=== PATIENT | female | born 1995 | race Caucasian/White ===

== ENCOUNTER 2017-06-23 09:33 | Emergency (ER) | payer BC ==
[2017-06-23 11:49] VITALS: BP 116/75
--- NOTE | 2017-06-23 12:01 | UC ---
Throat Pain/Nasal Chip HPI - HPI Summary HPI Summary: 21 y/o female presents to the urgent care c/o sore throat, body aches and B/L ear pain for the past 2 days> Pt report Pain w/ swallowing is 8/10. Pt has taking Motrin to alleviate symptoms. Pt denies SOB, cough, chest pain, dizziness , abdominal pain, N/V/D. Pt is UTD w/ all vaccines for her age. - History of Current Complaint Chief Complaint: UCRespiratory Stated Complaint: ST, ACHES Time Seen by Provider: 06/23/17 11:52 Hx Obtained From: Patient Hx Last Menstrual Period: 06/17/17 Onset/Duration: Gradual Onset, Lasting Days - 3 days, Still Present, Worse Since - 2 days Severity: Moderate Pain Intensity: 8 Pain Scale Used: 0-10 Numeric Cough: None Associated Signs & Symptoms: Positive: Negative, Fever - chills and subjective at home - Epiglottits Risk Factors Epiglottis Risk Factors: Negative - Allergies/Home Medications Allergies/Adverse Reactions: Allergies Allergy/AdvReac Type Severity Reaction Status Date / Time levofloxacin [From Levaquin] Allergy Unknown Verified 06/23/17 11:47 Reaction Details Home Medications: Home Medications Ethinyl Estradiol/Drospirenone [Ocella 3 mg-0.03 mg Tablet] 1 tab PO DAILY 06/23 [History Confirmed 06/23/17] PMH/Surg Hx/FS Hx/Imm Hx Previously Healthy: Yes - Pt denies PMHX - Surgical History Surgical History: None - Family History Known Family History: Positive: None - Pt denies FMHX - Social History Occupation: Student Lives: With Family Alcohol Use: Occasionally Substance Use Type: None Smoking Status (MU): Never Smoked Tobacco Review of Systems Constitutional: Fever - subjective at home, Chills Skin: Negative Eyes: Negative ENT: Sore Throat, Ear Ache - B/L ear pain Respiratory: Cough Cardiovascular: Negative Gastrointestinal: Negative Genitourinary: Negative Motor: Negative Neurovascular: Negative Musculoskeletal: Negative Neurological: Negative Psychological: Negative Is Patient Immunocompromised?: No All Other Systems Reviewed And Are Negative: Yes Physical Exam Triage Information Reviewed: Yes Vital Signs: Initial Vital Signs Temp 99.5 F 06/23/17 11:45 Pulse 101 06/23/17 11:45 Resp 15 06/23/17 11:45 BP 116/75 02/08/18 11:45 Pulse Ox 99 06/23/17 11:45 - Additional Comments VITAL SIGNS: Reviewed. GENERAL: Patient is a well developed and nourished female who is sitting comfortable in the examining table. Patient is not in any acute respiratory distress. HEAD AND FACE: No signs of trauma. No ecchymosis, hematomas or skull depressions. No sinus tenderness. EYES: PERRLA, EOMI x 2, No injected conjunctiva, no nystagmus. No photophobia. EARS: Hearing grossly intact. Ear canals and tympanic membranes are within normal limits. MOUTH: Positive pharynx with erythema, moderate exudates, palatal petechiae. B/ L tonsillar enlargement with moderate exudate. Uvula in midline. NECK: Supple, trachea is midline, Positive anterior cervical lymphadenopathy, no JVD, no carotid bruit, no c-spine tenderness, neck with full ROM. No meningeal signs, no Kernig's or brudzinskis signs. CHEST: Symmetric, no tenderness at palpation LUNGS: Clear to auscultation bilaterally. No wheezing or crackles. CVS: Regular rate and rhythm, S1 and S2 present, no murmurs or gallops appreciated. ABDOMEN: Soft, non-tender. No signs of distention. No rebound no guarding, and no masses palpated. Bowel sounds are normal. EXTREMITIES: FROM in all major joints, no edema, no cyanosis or clubbing. NEURO: Alert and oriented x 3. No acute neurological deficits. Speech is normal and follows commands. SKIN: Dry and warm Throat Pain/Nasal Course/Dx - Course Course Of Treatment: 21 y/o female presents to the urgent care c/o sore throat, body aches and B/L ear pain for the past 2 days> Pt report Pain w/ swallowing is 8/10. Pt has taking Motrin to alleviate symptoms. Pt denies SOB, cough, chest pain, dizziness, abdominal pain, N/V/D. Pt is UTD w/ all vaccines for her age. Hx obtained. Rapid strep ordered: result: invalid. Throat culture obatined and sent to lab to r/o strep. Pt will be treated prophylactically for Strep pharyngitis. Rx Amoxicillin PO and Ibuprofen PO and Prednisone PO to alleviate symptoms. PT Advised on hand washing to avoid spreading. Also advised to rest, eat well and avoid strenuous exercise. If symptoms do not improve or worsen advised to return to the urgent care or f/u with her PCP for further evaluation and treatment. PT understood and agreed - Differential Dx/Diagnosis Differential Diagnosis/HQI/PQRI: Influenza, Mononucleosis, Otitis Media, Peritonsillar Abscess, Pharyngitis, Tonsillitis Provider Diagnoses: 1- Pharyngitis. 2-Tonsillitis Discharge - Discharge Plan Condition: Stable Disposition: HOME Prescriptions: Amoxicillin PO (*) [Amoxicillin 875 MG (*)] 875 mg PO BID #20 tab Ibuprofen TAB* [Motrin TAB* 800 MG] 800 mg PO Q6H PRN #20 tab PRN Reason: Sore Throat predniSONE TAB* [Deltasone TAB*] 20 mg PO DAILY #11 tab Patient Education Materials: Pharyngitis (ED), Tonsillitis (ED) Forms: *School Release Referrals: [facility] [Outside] - 3 Days Additional Instructions: 1- Please take the full course of the antibiotic to avoid resistance. 2-Please take Prednisone PO and ibuprofen PO q6-8hrs prn as instructed after meals to alleviate pain and swelling. Increase fluid intake, eat well, rest and avoid strenuous exercise 3- Throat culture was sent to lab to r/o strep. You will be notified of result 4-If symptoms do not improve or worsen please return to the urgent care or f/u with your PCP for further evaluation and treatment.
== END 2017-06-23 12:43 | disposition home or self-care (01) ==
LOC: UCCORT 09:33
DX: J02.9 Acute pharyngitis, unspecified (principal); J03.90 Acute tonsillitis, unspecified
CPT/HCPCS: 87070; 99202; G0463

== ENCOUNTER 2018-06-22 11:29 | Emergency (ER) | payer BC ==
[2018-06-22 13:46] VITALS: BP 122/80
--- NOTE | 2018-06-22 14:03 | UC ---
General HPI - HPI Summary HPI Summary: Two days ago started with sore throat and gever. No cough or congestion. Having trouble sleeping because she wakes up with chills and sweats. No N/V/D. No abdominal pain. No rash. Meds: reviewed - History of Current Complaint Chief Complaint: UCGeneralIllness Stated Complaint: THROAT COMPLAINT Time Seen by Provider: 06/22/18 13:42 Hx Last Menstrual Period: 06/20/18 Pain Intensity: 8 - Allergy/Home Medications Allergies/Adverse Reactions: Allergies Allergy/AdvReac Type Severity Reaction Status Date / Time levofloxacin [From Levaquin] Allergy Unknown Verified 06/23/17 11:47 Reaction Details Home Medications: Home Medications Ibuprofen TAB* [Motrin TAB* 800 MG] 400 mg PO Q6H PRN 06/22/18 [History Confirmed 06/22/18] PMH/Surg Hx/FS Hx/Imm Hx Previously Healthy: Yes - Surgical History Surgical History: None - Family History Known Family History: Positive: None - Pt denies FMHX - Social History Alcohol Use: Weekly Substance Use Type: None Smoking Status (MU): Never Smoked Tobacco Review of Systems All Other Systems Reviewed And Are Negative: Yes Constitutional: Positive: Fever, Chills ENT: Positive: Sore Throat Physical Exam Triage Information Reviewed: Yes Appearance: Well-Appearing Vital Signs: Initial Vital Signs Temp 98.7 F 06/22/18 13:42 Pulse 121 06/22/18 13:42 Resp 15 06/22/18 13:42 BP 122/80 06/22/18 13:42 Pulse Ox 99 06/22/18 13:42 Vital Signs Reviewed: Yes ENT: Positive: Pharyngeal erythema, Tonsillar swelling, Tonsillar exudate Neck: Positive: Supple, Enlarged Nodes @ - anterior cervical nodes Respiratory: Positive: Lungs clear, Normal breath sounds Cardiovascular: Positive: No Murmur, Tachycardia Skin Exam: Normal Course/Dx - Course Course Of Treatment: This is a 22 yr old with sore throat and fever. Assessment. Rapid strep: positive. Plan. Continue supportive care. Start Amoxicillin as prescribed. Continue fluids and continue ibuprofen as prescribed as needed for pain/fever - Diagnoses Provider Diagnosis: Strep throat Discharge - Sign-Out/Discharge Documenting (check all that apply): Patient Departure All imaging exams completed and their final reports reviewed: No Studies - Discharge Plan Condition: Good Disposition: HOME Prescriptions: Amoxicillin PO (*) [Amoxicillin 500 MG CAP*] 500 mg PO Q12H #20 cap Patient Education Materials: Strep Throat (ED) Forms: *School Release Referrals: No Primary Care Phys,NOPCP [Primary Care Provider] - Additional Instructions: Continue supportive care Start Amoxicillin as prescribed Continue fluids and continue ibuprofen as prescribed as needed for pain/fever - Billing Disposition and Condition Condition: GOOD Disposition: Home
== END 2018-06-22 14:07 | disposition home or self-care (01) ==
LOC: UCCORT 11:29
DX: J02.0 Streptococcal pharyngitis (principal); Z88.1 Allergy status to other antibiotic agents
CPT/HCPCS: 87651; 99212; G0463